=== PATIENT | female | born 1960 | race Caucasian/White ===

== ENCOUNTER 2022-08-21 10:27 | Emergency (ER) | payer OTHER ==
[~2022-08-21] VITALS: Ht 160 cm; Wt 73.5 kg
[2022-08-21 10:46] VITALS: BP_SYST 144
--- NOTE | 2022-08-21 11:00 | NUR ---
RECEIVED PT FROM DARIAN ASHER. PT BIB SELF FOR R/O DVT IN LOWER EXTREMITY. PT STATES SHE HAS LEG LOWER LEG PAIN 8/. SKIN INTACT, PT NOTED WITH VARICOSE VEINS, NO BUMP, LUMP OR REDNESS TO RIGHT LOWER LEG. PT AAOX4, ON R/A. DENIES N/V/D/C. DISTAL PULSES STRONG. SIDERAILS UP X2.
--- NOTE | 2022-08-21 11:05 | NUR ---
DR. LOPEZ AT BEDSIDE TO ASSESS PT.
--- NOTE | 2022-08-21 11:13 | NUR ---
BLOOD OBTAINED AND TAKEN TO LAB.
[2022-08-21 11:27] LABS: BASOPHILS % (AUTO) 0.4 % (0.0-2.0); HEMOGLOBIN 13.8 g/dL (12.0-16.0); MEAN CORPUSCULAR HEMOGLOBIN 30 pg (27-31); MEAN CORPUSCULAR HGB CONC 34 % (32-36); MEAN CORPUSCULAR VOLUME 88 fL (79.0-98.0); MONOCYTES # (AUTO) 0.5 K/uL (0.0-1.0); MONOCYTES % (AUTO) 8.2 % (1.7-9.3); NEUTROPHILS # (AUTO) 3.9 K/uL (1.8-7.7); RED CELL DISTRIBUTION WIDTH 13.1 % (9.0-15.0); WHITE BLOOD COUNT (AUTO) 6.1 K/uL (4.8-10.8)
[2022-08-21 11:34] LABS: EOSINOPHILS % (AUTO) 0.7 % (0.0-4.0); LYMPHOCYTES # (AUTO) 1.7 K/uL (1.0-5.5); LYMPHOCYTES % (AUTO) 27.4 % (20.5-51.5); NEUTROPHILS % (AUTO) 63.3 % (40.0-70.0); PLATELET COUNT (AUTO) 195 K/uL (130-430); RED BLOOD CELL COUNT(AUTO) 4.65 MIL/uL (4.2-6.2)
[2022-08-21 11:45] LABS: CALCIUM 9.4 mg/dL (8.4-11.0); CREATININE 0.71 mg/dL (0.55-1.30)
[2022-08-21 11:49] LABS: PROTHROMBIN TIME 10.4 SECS (9.5-12.5); TOTAL BILIRUBIN 0.5 mg/dL (0.0-1.0)
--- NOTE | 2022-08-21 11:51 | NUR ---
PT RECEIVING U/S BLE AT THIS TIME.
[2022-08-21 13:10] VITALS: BP_SYST 144
--- NOTE | 2022-08-21 13:10 | NUR ---
Patient given written and verbal discharge instructions and verbalizes understanding. ER MD discussed with patient the results and treatment provided. Patient in stable condition. ID arm band removed. NO Rx of given. Patient educated on pain management and to follow up with PMD. Pain Scale 2. Opportunity for questions provided and answered. Medication side effect fact sheet provided.
== END 2022-08-21 13:10 | disposition home or self-care (01) ==
LOC: SED 10:27
DX: G47.62 Sleep related leg cramps (principal); M79.662 Pain in left lower leg; Z79.899 Other long term (current) drug therapy
CPT/HCPCS: 36415; 80053; 85025; 85610-TC; 85730-TC; 93971; 99284